=== PATIENT | male | born 2000 | race African-American/Black ===

== ENCOUNTER 2019-10-19 13:01 | Emergency (ER) | payer MEDICAID ==
[~2019-10-19] VITALS: Ht 190.5 cm; Wt 73.5 kg
[2019-10-19 13:09] VITALS: Ht 190.5 cm; Wt 73.5 kg
[2019-10-19 14:48] VITALS: BP 131/68
== END 2019-10-19 14:49 | disposition home or self-care (01) ==
LOC: ED 13:01
DX: S63.502A Unspecified sprain of left wrist, initial encounter (principal); W17.89XA Other fall from one level to another, initial encounter; Y93.67 Activity, basketball; Y92.89 Other specified places as the place of occurrence of the external cause; Y99.8 Other external cause status

== ENCOUNTER 2020-10-06 11:00 | Emergency (ER) | payer MEDICAID ==
[~2020-10-06] VITALS: Ht 188 cm; Wt 75.3 kg
[2020-10-06 11:06] VITALS: Ht 188 cm; Wt 75.3 kg
[2020-10-06 12:09] VITALS: BP 128/68
== END 2020-10-06 12:38 | disposition home or self-care (01) ==
LOC: ED 11:00
DX: S46.002A Unspecified injury of muscle(s) and tendon(s) of the rotator cuff of left shoulder, initial encounter (principal); R07.89 Other chest pain; J45.909 Unspecified asthma, uncomplicated; W11.XXXA Fall on and from ladder, initial encounter; Y93.89 Activity, other specified; Y92.89 Other specified places as the place of occurrence of the external cause; Y99.8 Other external cause status